=== PATIENT | male | born 1955 | race Caucasian/White ===

== ENCOUNTER 2024-03-01 07:11 | Day surgery (SDC) | payer BC, MEDICARE ==
[~2024-03-01 07:11] MED LIST: Lactated Ringers 1,000 ML IV SCH; Lidocaine 1%/Sod Bicarbonate in NS 8.4% 1 ML Syringe IDERM PRN; Sodium Chloride 0.9% 10 ML Syringe FLUSH PRN; Sodium Chloride 0.9% 10 ML Syringe FLUSH SCH
[2024-03-01] MEDS: Lactated Ringers 1,000 ML IV SCH (07:15)
[2024-03-01] MEDS ORDERED: Propofol 200 MG/20 ML SDV ONE (08:39)
[2024-03-01] MEDS ORDERED: fentaNYL 100 MCG/2 ML SDV ONE (09:05)
[2024-03-01] MEDS ORDERED: Lidocaine 2% 5 ML SDV ONE (09:06)
[2024-03-01 10:28] VITALS: BP 120/69; PULSE 50
== END 2024-03-01 10:25 | disposition home or self-care (01) ==
LOC: JD.SDS 07:11
PROVIDERS: ATTEND Surgery
DX: Z12.11 Encounter for screening for malignant neoplasm of colon (principal); D12.5 Benign neoplasm of sigmoid colon; K57.30 Diverticulosis of large intestine without perforation or abscess without bleeding; Z86.010 Personal history of colon polyps; Z80.0 Family history of malignant neoplasm of digestive organs; I10 Essential (primary) hypertension; E03.9 Hypothyroidism, unspecified; E78.2 Mixed hyperlipidemia; Z79.890 Hormone replacement therapy; Z79.899 Other long term (current) drug therapy; Z88.5 Allergy status to narcotic agent
CPT/HCPCS: 45380; J2704; J3010; J7120; 00811; J3490